=== PATIENT | male | born 1990 ===

== ENCOUNTER 2017-09-12 20:17 | Emergency (ER) | payer SELFPAY ==
[2017-09-12 20:28] VITALS: TEMP 98.9
[2017-09-12] MEDS ORDERED: Sodium Chloride 0.9% 1,000 ML IV STA (20:49)
--- NOTE | 2017-09-12 21:01 | ED PDOC ---
Arrival/HPI <MartinRodri - Last Filed: 09/12/17 21:53> - General Historian: Patient <Aguila Tobias Queenie - Last Filed: 09/13/17 01:49> - General Chief Complaint: Abdominal Pain Time Seen by Provider: 09/12/17 20:33 - History of Present Illness Narrative History of Present Illness (Text): 09/12/17 20:54 27yo male with no PMHx who present with complaint of LLQ abdominal pain with associated nausea x 3days. Pain is constant and achy. He did not take any medication for the pain. Denies vomiting, diarrhea, constipation, melena, hematochezia, hematemesis, fever, chills, urinary symptoms, sick contact, any other complaint. (Aguila Tobias A) Past Medical History - Provider Review Nursing Documentation Reviewed: Yes - Psychiatric Hx Substance Use: No <Aguila Tobias A - Last Filed: 09/13/17 01:49> Family/Social History - Physician Review Nursing Documentation Reviewed: Yes Family/Social History: Unknown Family HX Smoking Status: Never Smoked Hx Alcohol Use: No Hx Substance Use: No <Aguila Tobias A - Last Filed: 09/13/17 01:49> Allergies/Home Meds <Rodri Salazar - Last Filed: 09/12/17 21:53> <Aguila Tobias A - Last Filed: 09/13/17 01:49> Allergies/Adverse Reactions: Allergies No Known Allergies Allergy (Verified 09/12/17 20:26) Home Medications: Home Meds Medication Instructions Recorded Confirmed No Known Home Med 09/12/17 09/12/17 Review of Systems - Physician Review All systems were reviewed & negative as marked: Yes - Review of Systems Constitutional: Normal Eyes: Normal ENT: Normal Respiratory: Normal Cardiovascular: Normal Gastrointestinal: Abdominal Pain, Nausea. absent: Constipation, Diarrhea, Vomiting, Hematochezia, Hematemesis Genitourinary Male: Normal Musculoskeletal: Normal Skin: Normal Neurological: Normal Endocrine: Normal Hemo/Lymphatic: Normal Psychiatric: Normal <Aguila Tobias A - Last Filed: 09/13/17 01:49> Physical Exam Vital Signs Reviewed: Yes Temperature: Afebrile Blood Pressure: Normal Pulse: Regular Respiratory Rate: Normal Appearance: Positive for: Well-Appearing, Non-Toxic, Comfortable Pain Distress: None Mental Status: Positive for: Alert and Oriented X 3 - Systems Exam Head: Present: Atraumatic, Normocephalic Pupils: Present: PERRL Extroacular Muscles: Present: EOMI Conjunctiva: Present: Normal Mouth: Present: Moist Mucous Membranes Neck: Present: Normal Range of Motion Respiratory/Chest: Present: Clear to Auscultation, Good Air Exchange. No: Respiratory Distress, Accessory Muscle Use Cardiovascular: Present: Regular Rate and Rhythm, Normal S1, S2. No: Murmurs Abdomen: Present: Tenderness (LLQ tenderness), Normal Bowel Sounds, Other (Soft) . No: Distention, Peritoneal Signs, Rebound, Guarding, McBurney's Point Tender , Rovsing's Sign Present Back: Present: Normal Inspection Upper Extremity: Present: Normal Inspection. No: Cyanosis, Edema Lower Extremity: Present: Normal Inspection. No: Edema Neurological: Present: GCS=15, CN II-XII Intact, Speech Normal Skin: Present: Warm, Dry, Normal Color. No: Rashes Psychiatric: Present: Alert, Oriented x 3, Normal Insight, Normal Concentration <Aguila Tobias A - Last Filed: 09/13/17 01:49> Vital Signs Temp Pulse Resp BP Pulse Ox 09/12/17 22:31 78 17 138/75 100 09/12/17 20:26 98.9 F 73 18 126/82 97 Medical Decision Making <Rodri Salazar - Last Filed: 09/12/17 21:53> <Aguila Tobias - Last Filed: 09/13/17 01:49> ED Course and Treatment: 09/13/17 01:47 PT in ED for stated history. He was comfortable in ED. Noted drinking juice in ED. Lab was unremarkable and Abdominal /Pelvic Ct was negative The cause of pt's pain is unclear at this time. IT could be secondary to a ligament strain. Result was DW the pt. He was advised to f/u with his PMD. He was not in any pain on re evaluation. (Aguila Tobias A) - Lab Interpretations Lab Results: 09/12/17 20:50 09/12/17 20:50 Lab Results 09/12/17 20:50: Sodium 143, Potassium 3.6, Chloride 105, Carbon Dioxide 23, Anion Gap 18, BUN 7, Creatinine 0.7 L, Est GFR ( Amer) > 60, Est GFR (Non -Af Amer) > 60, Random Glucose 100, Calcium 9.2, Total Bilirubin 0.4, AST 33, ALT 59 H, Alkaline Phosphatase 50, Total Protein 7.4, Albumin 4.5, Globulin 2.9 , Albumin/Globulin Ratio 1.6, Lipase 45 09/12/17 20:50: PT 11.7, INR 1.03, APTT 33.5 09/12/17 20:50: WBC 8.5, RBC 5.72, Hgb 17.2, Hct 50.5, MCV 88.3, MCH 30.1, MCHC 34.1, RDW 13.7, Plt Count 241, MPV 10.9, Gran % 56.2, Lymph % (Auto) 33.4, [place] % (Auto) 6.7 H, Eos % (Auto) 3.3, Baso % (Auto) 0.4, Gran # 4.76, Lymph # 2.8, [place] # 0.6, Eos # 0.3, Baso # 0.03 - RAD Interpretation Radiology Orders: 09/12/17 20:50 ABD & PELVIS IV CONTRAST ONLY [CT] Stat - Medication Orders Current Medication Orders: Discontinued Medications Famotidine (Pepcid) 20 mg IVP STAT STA Stop: 09/12/17 20:50 Last Admin: 09/12/17 21:00 Dose: 20 mg IVP Administration Document 09/12/17 21:00 RD (Rec: 09/12/17 21:30 RD [facility] [id number]) Charges for Administration # of IVP Administrations 1 Sodium Chloride (Sodium Chloride 0.9%) 1,000 mls @ 1,000 mls/hr IV .Q1H STA Stop: 09/12/17 21:48 Last Admin: 09/12/17 21:00 Dose: 1,000 mls/hr eMAR Start Stop Document 09/12/17 21:00 RD (Rec: 09/12/17 21:30 RD [facility] [id number]) Intravenous Solution Start Date 09/12/17 Start Time 21:00 End Date 09/12/17 End time 22:00 Total Infusion Time 60 Ondansetron HCl (Zofran Inj) 4 mg IVP STAT STA Stop: 09/12/17 20:50 Last Admin: 09/12/17 21:05 Dose: 4 mg IVP Administration Document 09/12/17 21:05 RD (Rec: 09/12/17 21:31 RD [facility] [id number] Charges for Administration # of IVP Administrations 1 - PA / [employer] / Resident Statement MD/ has reviewed & agrees with the documentation as recorded. <Rodri Salazar - Last Filed: 09/12/17 21:53> Disposition/Present on Arrival <Rodri Salazar - Last Filed: 09/12/17 21:53> - Present on Arrival Any Indicators Present on Arrival: No History of DVT/PE: No History of Uncontrolled Diabetes: No Urinary Catheter: No History of Decub. Ulcer: No History Surgical Site Infection Following: None - Disposition Have Diagnosis and Disposition been Completed?: Yes Disposition Time: 22:25 Patient Plan: Discharge <Aguila Tobias - Last Filed: 09/13/17 01:49> - Disposition Diagnosis: Abdominal pain Disposition: HOME/ ROUTINE Condition: STABLE Discharge Instructions (ExitCare): Abdominal Pain (ED) Additional Instructions: Follow up with your Doctor Return to ED for any new or worsening symptoms Referrals: PCP,NO [Primary Care Provider] - Follow up with primary Forms: [employer] (Bel[place]ian)
[2017-09-12 21:14] LABS: BASO # 0.03 K/mm3 (0.0-2.0); BASO % 0.4 % (0.0-3.0); EOS # 0.3 (0.0-0.7); EOS % 3.3 % (1.5-5.0); GRAN # 4.76 (1.4-6.5); GRAN % 56.2 % (50.0-68.0); HEMOGLOBIN 17.2 g/dL (14.0-18.0); LYMPH # 2.8 (1.2-3.4); LYMPH % 33.4 % (22.0-35.0); MEAN CELL VOLUME 88.3 fl (80.0-105.0); MEAN CORPUSCULAR HEMOGLOBIN 30.1 pg (25.0-35.0); MEAN CORPUSCULAR HGB CONC 34.1 g/dl (31.0-37.0); MEAN PLATELET VOLUME 10.9 fl (7.0-11.0); MONO # 0.6 (0.1-0.6); MONO % 6.7 % (1.0-6.0); RBC 5.72 10^6/uL (3.5-6.1); RED CELL DISTRIBUTION WIDTH 13.7 % (11.5-14.5); WHITE BLOOD COUNT 8.5 10^3/ul (4.5-11.0)
[2017-09-12 21:15] LABS: ALB/GLOB RATIO 1.6 (1.1-1.8); ALBUMIN 4.5 g/dL (3.0-4.8); ALT/SGPT 59 U/L (7-56); AST/SGOT 33 U/L (17-59); BLOOD UREA NITROGEN 7 mg/dL (7-21); CALCIUM 9.2 mg/dL (8.4-10.5); GFR AFRICAN-AMERICAN > 60; GFR NON-AFRICAN AMERICAN > 60; LIPASE 45 U/L (23-300)
[2017-09-12 21:20] LABS: INR 1.03 (0.93-1.08); PARTIAL THROMBOPLASTIN TIME 33.5 Seconds (25.1-36.5); PROTHROMBIN TIME 11.7 SECONDS (9.4-12.5)
[2017-09-12] MEDS ORDERED: Iohexol 350 MG/100 ML VIAL ONE (21:27)
--- NOTE | 2017-09-12 22:17 | CT ---
EXAM: CT Abdomen and Pelvis With Intravenous Contrast CLINICAL HISTORY: 27 years old, male; Pain; Abdominal pain; Localized; Left lower quadrant (llq); Additional info: Llq pain TECHNIQUE: Axial computed tomography images of the abdomen and pelvis with intravenous contrast. All CT scans at this facility use one or more dose reduction techniques, viz.: automated exposure control; ma/kV adjustment per patient size (including targeted exams where dose is matched to indication; i.e. head); or iterative reconstruction technique. Coronal and sagittal reformatted images were created and reviewed. CONTRAST: 100 mL of OMNI administered intravenously. COMPARISON: No relevant prior studies available. FINDINGS: Lower thorax: No acute findings. ABDOMEN: Liver: Unremarkable. No mass. Gallbladder and bile ducts: No calcified stones. No ductal dilation. Pancreas: No ductal dilation. No mass. Spleen: No splenomegaly. Adrenals: No mass. Kidneys and ureters: Too small to characterize lesion within LEFT kidney. No hydronephrosis. Stomach and bowel: No definite mural thickening. No obstruction. Appendix: Normal caliber. No inflammation. PELVIS: Bladder: Unremarkable. Reproductive: Unremarkable as visualized. ABDOMEN and PELVIS: Intraperitoneal space: No significant fluid collection. No free air. Bones/joints: No acute fracture. Soft tissues: Tiny umbilical hernia containing fat. Vasculature: Unremarkable. No aneurysm. Lymph nodes: No pathologically enlarged lymph nodes. IMPRESSION: 1. No definite acute intraabdominal abnormality. 2. Incidental/non-acute findings are described above.
[2017-09-12 22:32] VITALS: BP 138/75; PULSE 78; RESP 17; O2SAT 100
== END 2017-09-12 23:18 | disposition home or self-care (01) ==
LOC: ED 20:17
DX: R10.9 Unspecified abdominal pain (principal)
CPT/HCPCS: 74177; 80053; 83690; 85025; 85610; 85730; 96361; 96374; 96375; 99283; J2405; J7040; Q9967